=== PATIENT | male | born 1940 | race Caucasian/White ===

== ENCOUNTER 2016-06-13 10:05 | Day surgery (SDC) | payer MEDICARE, OTHER ==
[2016-06-13] VITALS (11 sets, daily range): BP systolic 98–126; BP diastolic 46–82
[~2016-06-13 10:05] MED LIST: ALBU1.257 IH; AZIT1PAC8 PO; DIGO125T PO; DILT240C88 PO; Rivaroxaban PO
[2016-06-13] MEDS ORDERED: IV SET PRIMARY 1 EA INFUS.SET MC ONE (10:35)
[2016-06-13] MEDS: IV NS 0.9% 1,000 ML ONE (10:36)
[2016-06-13] MEDS ORDERED: DIGO125T PO (12:09)
[2016-06-13] MEDS ORDERED: DILT240C88 PO (12:09)
[2016-06-13] MEDS ORDERED: RIVA10TA PO (12:09)
[2016-06-13] MEDS: DRONEDARONE HYDROCHLORIDE 400 MG TABLET PO ONE (13:33)
== END 2016-06-13 14:15 | disposition home or self-care (01) ==
LOC: DS 10:05 → INTOOBSV 10:06 → UNDOADMOB 10:06 → ICU 10:06 → UNDODISIN 14:15 → DS 14:15
PROVIDERS: ATTEND Internal Medicine Interventional Cardiology
PROC: 5A2204Z Restoration of Cardiac Rhythm, Single (ICD-10-PCS; principal; 2016-06-13)
DX: I48.91 Unspecified atrial fibrillation (principal); I10 Essential (primary) hypertension; I25.2 Old myocardial infarction
CPT/HCPCS: 92960; J7030

== ENCOUNTER 2017-01-28 08:37 | Outpatient (CLI) | payer OTHER ==
[~2017-01-28 08:37] MED LIST changes: -ALBU1.257 IH; -AZIT1PAC8 PO; +RIVA10TA PO; -Rivaroxaban PO
[2017-01-28 10:11] LABS: MEAN CORPUSCULAR HEMOGLOBIN 17 PG (26.0-33.0); MEAN CORPUSCULAR HGB CONC 29 g/dl (31.0-36.0); MEAN CORPUSCULAR VOLUME 58 fL (80-96); PLATELET COUNT (AUTO) 237 /CMM (150-450); RDW COEFFICIENT OF VARIATION 20.7 (11.5-15.0); WHITE BLOOD COUNT (AUTO) 4.7 K/uL (4.3-11.0)
[2017-01-28 10:18] LABS: HEMOGLOBIN 5.8 g/dL (13.5-17.5)
[2017-01-28 10:19] LABS: HEMATOCRIT 20 % (39-51)
[2017-01-28 10:22] LABS: ALANINE AMINOTRANSFERASE 25 U/L (12-78); ALBUMIN 3.4 g/dL (3.4-5.0); ALKALINE PHOSPHATASE 60 U/L (46-116); ASPARTATE AMINOTRANSFERASE 14 U/L (15-37); BILIRUBIN,TOTAL 0.3 mg/dL (0.2-1.0); CALCIUM, SERUM 8.6 mg/dL (8.5-10.1); CARBON DIOXIDE 24 mmol/L (21-32); CHLORIDE 106 mmol/L (98-107); CREATININE 1.4 mg/dL (0.6-1.3); GLUCOSE 89 mg/dL (74-106); MAGNESIUM 2.2 mg/dL (1.8-2.4); POTASSIUM 4.1 mmol/L (3.5-5.1); SODIUM SERUM 140 mmol/L (136-145); TOTAL PROTEIN, SERUM 6.6 g/dL (6.4-8.2); UREA NITROGEN, BLOOD 26 mg/dL (7-18)
[2017-01-28 10:31] LABS: THYROID STIMULATING HORMONE 1.201 uIU/mL (0.358-3.74)
[2017-01-28 10:40] LABS: EOSINOPHILS % (MANUAL) 1 % (0-4); LYMPHOCYTES % (MANUAL) 24 % (16-48); MONOCYTES % (MANUAL) 8 % (0-11.0); NEUTROPHILS % (MANUAL) 67 (42-76)
[2017-01-28] MEDS ORDERED: DRON400T2 PO (12:46)
== END 2017-01-28 23:59 | disposition home or self-care (01) ==
LOC: LAB 08:37
PROVIDERS: ATTEND Internal Medicine Interventional Cardiology
DX: I48.91 Unspecified atrial fibrillation (principal)
CPT/HCPCS: 36415; 80053-TC; 83735-TC; 84439-TC; 84443-TC; 85025-TC

== ENCOUNTER 2017-01-28 11:42 | Inpatient (IN) | payer MEDICARE, OTHER ==
[2017-01-28] VITALS (11 sets, daily range): BP systolic 105–131; BP diastolic 60–96
[~2017-01-28] VITALS: Ht 167.6 cm; Wt 64.4 kg
--- NOTE | 2017-01-28 11:42 | NUR ---
SENT BY DR MORE FOR LOW HGB. NAD NOTED. PT AAO X4, AMB WITH STEADY GAIT. RR EVEN AND UNLABORED. PENDING MD MALONEY.
--- NOTE | 2017-01-28 12:00 | NUR ---
IV ACCESSED RIGHT FA 18G PATENT AND FLUSHING WELL.
[2017-01-28 12:22] LABS: MEAN CORPUSCULAR HEMOGLOBIN 18 PG (26.0-33.0); MEAN CORPUSCULAR HGB CONC 31 g/dl (31.0-36.0); MEAN CORPUSCULAR VOLUME 58 fL (80-96); PLATELET COUNT (AUTO) 194 /CMM (150-450); RDW COEFFICIENT OF VARIATION 19.1 (11.5-15.0); WHITE BLOOD COUNT (AUTO) 4.8 K/uL (4.3-11.0)
[2017-01-28 12:25] LABS: HEMATOCRIT 19 % (39-51)
[2017-01-28 12:33] LABS: INR 1.12 (0.87-1.13); PROTHROMBIN TIME 11.7 SECS (9.5-12.7)
[2017-01-28 12:35] LABS: ALANINE AMINOTRANSFERASE 23 U/L (12-78); ALBUMIN 3.5 g/dL (3.4-5.0); ALKALINE PHOSPHATASE 66 U/L (46-116); ASPARTATE AMINOTRANSFERASE 15 U/L (15-37); BILIRUBIN,DIRECT 0.1 mg/dL (0.0-0.2); BILIRUBIN,TOTAL 0.3 mg/dL (0.2-1.0); CALCIUM, SERUM 8.4 mg/dL (8.5-10.1); CARBON DIOXIDE 25 mmol/L (21-32); CHLORIDE 103 mmol/L (98-107); CREATININE 1.5 mg/dL (0.6-1.3); GLUCOSE 108 mg/dL (74-106); IRON, SERUM 15 ug/dl (50-175); POTASSIUM 3.9 mmol/L (3.5-5.1); SODIUM SERUM 137 mmol/L (136-145); TOTAL IRON BINDING CAPACITY 485 ug/dl (250-450); TOTAL PROTEIN, SERUM 6.6 g/dL (6.4-8.2); UREA NITROGEN, BLOOD 28 mg/dL (7-18)
[2017-01-28] MEDS ORDERED: DRON400T2 PO (12:46)
[2017-01-28 12:48] LABS: FERRITIN 4 ng/mL (8-388)
[2017-01-28] MEDS ORDERED: PANTOPRAZOLE 80 MG in IV NS 0.9% 500 ML IV ONE ×2 (13:00→13:30)
[2017-01-28] MEDS ORDERED: PANTOPRAZOLE 40 MG VIAL ONE (13:15)
--- NOTE | 2017-01-28 13:26 | NUR ---
REPORT GIVEN TO PREET ROJAS FOR JOSE
[2017-01-28] MEDS ORDERED: ZOLPIDEM TARTRATE 5 MG TABLET PO PRN (13:30)
[2017-01-28] MEDS ORDERED: MAGNESIUM HYDROXIDE 30 ML UDC PO PRN (13:30)
[2017-01-28] MEDS ORDERED: ONDANSETRON HCL/PF 4 MG/2 ML VIAL IVP PRN (13:30)
[2017-01-28] MEDS ORDERED: PANTOPRAZOLE 40 MG VIAL IV ONE (13:30)
[2017-01-28] MEDS ORDERED: ACETAMINOPHEN 325 MG TABLET PO PRN (13:30)
[2017-01-28] MEDS ORDERED: Z GUARD REMEDY 2 OZ OINT TP PRN (13:30)
[2017-01-28] MEDS ORDERED: MAG HYDROX/AL HYDROX/SIMETH 30 ML UDC PO PRN (13:30)
[2017-01-28] MEDS ORDERED: HYDROCODONE/APAP 5/325MG 1 EACH TABLET PO PRN (13:30)
--- NOTE | 2017-01-28 14:30 | NUR ---
RN INITIAL NOTES 1400 RECEIVED PT FROM ER. AWAKE, A/OX4. NO RESPIRATORY DISTRESS NOTED. NO SOB NOTED. DENIES ANY PAIN. PLACED COMFORTABLY IN BED. ORIENTED TO ROOM AND USE OF CALL LIGHT. IV LINE IN PLACE. BODY ASSESSMENT DONE, SKIN INTACT. PT CONTINENT AND AMBULATORY. PT HAS ORDER FOR BLOOD TRANSFUSION AND COLONOSCOPY. CONSENT OBTAINED FROM PT AFTER EXPLANATION OF PROCEDURE, RISK AND BENEFITS. PT VERBALIZED UNDERSTANDING. CALLED BLOOD BANK, 1 UNIT OF BLOOD NOT READY. WILL CALL ONCE BLOOD IS READY. PT COMFORTABLE. CALL LIGHT WITHIN REACH. WILL MONITOR.
[2017-01-28] MEDS ORDERED: DRONEDARONE HYDROCHLORIDE 400 MG TABLET PO SCH (17:00)
[2017-01-28 17:01] LABS: RETICULOCYTE COUNT 3.7 % (0.6-2.5)
[2017-01-28 17:27] LABS: THYROID STIMULATING HORMONE 1.092 uIU/mL (0.358-3.74); URIC ACID 5.2 mg/dL (2.6-7.2)
--- NOTE | 2017-01-28 18:40 | NUR ---
RN CLOSING NOTES PT REMAINS STABLE. NO ACTIVE BLEEDING NOTED. NO RESPIRATORY DISTRESS NOTED. DENIES ANY PAIN. IV LINE IN PLACE. KEPT COMFORTABLE. CALL LIGHT WITHIN REACH. WILL ENDORSE FOR CONTINUITY OF CARE. Addendum: 01/28/17 at 1845 by ARIANNE CARDOSO RN FOR BLOOD TRANSFUSION. BLOOD NOT YET READY PER BLOOD BANK. WILL CALL ONCE BLOOD AVAILABLE.
--- NOTE | 2017-01-28 19:05 | NUR ---
MARILOU RN OPENING NOTES REPORT RECEIVED FROM AM RN. PATIENT A/A/O X3, ABLE TO MAKE NEEDS KNOWN. BREATHING EVEN AND UNLABORED, ON ROOM AIR. DENIES SOB OR DIFFICULTY BREATHING. ON TELE W/ CONTROLLED A-FIB IN THE 80S. PULSES PRESENT. SKIN WARM TO TOUCH. RIGHT FOREARM IV #18 INTACT AND PATENT W/ DRESSING CDI. DENIES ANY PAIN OR DISCOMFORT @ THIS TIME. SAFETY MEASURES IN PLACE W/ SIDE RAILS UP, BED LOCKED IN LOWEST POSITION & CALL LIGHT WITHIN REACH. WILL CONTINUE TO MONITOR.
--- NOTE | 2017-01-28 21:14 | NUR ---
MARILOU RN NOTES BLOOD TRANSFUSION STARTED. NO INITIAL REACTIONS NOTED.
[2017-01-29] VITALS (7 sets, daily range): BP systolic 90–127; BP diastolic 55–78
--- NOTE | 2017-01-29 00:09 | NUR ---
MARILOU RN NOTES BLOOD TRANSFUSION ENDED. NO REACTIONS NOTED. VS WNL. REMAINED AFEBRILE.
--- NOTE | 2017-01-29 05:00 | NUR ---
MARILOU RN NOTES PATIENT C/O SOB & NON-PRODUCTIVE COUGH. PER PATIENT "IT'S LIKE THERE'S SOMETHING IN MY CHEST THAT I CAN'T COUGH OUT". [facility] ON-CALL, DR PARRISH, PAGED. AWAITING CALL BACK. Addendum: 01/29/17 at 0653 by ELROY PINEDA RN DR MO SHANE, NOT DR PARRISH.
--- NOTE | 2017-01-29 05:35 | NUR ---
MARILOU ROJAS NOTES SPOKE TO DR FRANCOIS Azul/ [facility] FOR MUCINEX. ORDER CARRIED OUT. Addendum: 01/29/17 at 0652 by ELROY PINEDA RN CORBY Azul/ DR MO SHANE, NOT DR PARRISH.
[2017-01-29 06:46] LABS: BASOPHILS % (AUTO) 0.1 % (0.0-2.0); EOSINOPHILS # (AUTO) 0.1 /CMM (0.0-0.7); EOSINOPHILS % (AUTO) 1.2 % (0.0-6.0); HEMATOCRIT 24 % (39-51); HEMOGLOBIN 7.2 g/dL (13.5-17.5); LYMPHOCYTES # (AUTO) 1.2 /CMM (0.8-4.8); MEAN CORPUSCULAR HEMOGLOBIN 19 PG (26.0-33.0); MEAN CORPUSCULAR HGB CONC 30 g/dl (31.0-36.0); MEAN CORPUSCULAR VOLUME 61 fL (80-96); MONOCYTES % (AUTO) 14.4 % (2.0-12.0); NEUTROPHILS # (AUTO) 4.7 /CMM (1.8-8.9); NEUTROPHILS % (AUTO) 67.3 % (43.0-81.0); PLATELET COUNT (AUTO) 225 /CMM (150-450); RDW COEFFICIENT OF VARIATION 26.1 (11.5-15.0); RED BLOOD CELL COUNT(AUTO) 3.88 MIL/uL (4.5-6.0); WHITE BLOOD COUNT (AUTO) 7.1 K/uL (4.3-11.0)
--- NOTE | 2017-01-29 07:00 | NUR ---
RN NOTES RECEIVED PT ON BED, A/O X3, ABLE TO MAKE NEEDS KNOWN. BREATHING EVEN AND UNLABORED, TELE W/ CONTROLLED A-FIB IN THE 90'S . RIGHT FOREARM IV #18 INTACT AND PATENT W/ DRESSING CDI. NO DISTRESS NOTED, KEPT NPO THIS AM PER MD ORDER , SAFETY MEASURES IN PLACE W/ SIDE RAILS UP, BED LOCKED IN LOWEST POSITION & CALL LIGHT WITHIN REACH. WILL CONTINUE TO MONITOR PT CLOSELY AND NOTIFY MD FOR ANY SIGNIFICANT CHANGES
[2017-01-29 07:14] LABS: ALANINE AMINOTRANSFERASE 24 U/L (12-78); ALBUMIN 3.5 g/dL (3.4-5.0); ALKALINE PHOSPHATASE 63 U/L (46-116); ASPARTATE AMINOTRANSFERASE 17 U/L (15-37); BILIRUBIN,TOTAL 0.9 mg/dL (0.2-1.0); CALCIUM, SERUM 8.5 mg/dL (8.5-10.1); CARBON DIOXIDE 22 mmol/L (21-32); CHLORIDE 103 mmol/L (98-107); CREATININE 1.4 mg/dL (0.6-1.3); GLUCOSE 102 mg/dL (74-106); MAGNESIUM 1.9 mg/dL (1.8-2.4); PHOSPHORUS 3.9 mg/dL (2.5-4.9); POTASSIUM 4.2 mmol/L (3.5-5.1); SODIUM SERUM 136 mmol/L (136-145); TOTAL PROTEIN, SERUM 6.8 g/dL (6.4-8.2); UREA NITROGEN, BLOOD 24 mg/dL (7-18)
[2017-01-29 08:13] LABS: CARCINOEMBRYONIC AG (CEA) 1.2 ng/mL (0.0-4.7)
[2017-01-29] MEDS: PANTOPRAZOLE 40 MG VIAL IV SCH (08:47)
[2017-01-29] MEDS: IV D5/ 0.9% NACL 1,000 ML IV PRN (08:47)
[2017-01-29] MEDS: GUAIFENESIN LA 600 MG TABLET.SA PO SCH ×2 (08:47→21:54)
[2017-01-29] MEDS ORDERED: PEG 3350/NA SULF,BICARB,CL/KCL 4,000 ML BOTTLE PO ONE (09:00)
[2017-01-29 09:10] LABS: LYMPHOCYTES % (MANUAL) 15 % (16-48); MONOCYTES % (MANUAL) 12 % (0-11.0); NEUTROPHILS % (MANUAL) 73 (42-76)
--- NOTE | 2017-01-29 09:14 | NUR ---
RN NOTES COLONOSCOPY PREP STARTED PER MD ORDER .
--- NOTE | 2017-01-29 13:00 | NUR ---
RN NOTES PT COMPLETED GOLYTELY PREP FOR COLONOSCOPY , TOLERATED WELL, UP TO BR SEVERAL TIMES , STABLE , NO DISTRESS NOTED.
[2017-01-29] MEDS: SOD FERRIC GLUC 125 MG in IV NS 0.9% 100 ML IV SCH (14:37)
--- NOTE | 2017-01-29 15:00 | NUR ---
RN NOTES SLIGHT REDNESS NOTE AT IV SITE ON R ARM , NEW IV SITE STARTED ON L ARM G 22 , RIGHT ARM IV SITE D/GABE ,
--- NOTE | 2017-01-29 16:30 | NUR ---
RN NOTES HR A.FIB IN 130'S WHEN PT GET OOB TO BR , SENAIT ANY DISTRESS , DR. MORE PAGED AND NOTIFIED , NO NEW ORDER GIVEN , CONTINUE TO MONITOR .
--- NOTE | 2017-01-29 18:18 | NUR ---
RN NOTES PT WAITING FOR COLOSCOPY THIS PM , NPO, IV FLUID D5NS AT 70CC/O RUNNING L ARM IV G#22, STABLE , NO DISTRESS NOTED, SR UP x3, CALL LIGHT WITHIN EASY REACH, NO SIGNIFICANT CHANGES NOTED ON THIS SHIFT .
--- NOTE | 2017-01-29 18:54 | NUR ---
RN NOTES PT TO TO GI LAB FRO COLONOSCOPY AT THIS TIME IN STABLE CONDITION .
--- NOTE | 2017-01-29 21:25 | NUR ---
RN OPENING NOTES: RECEIVED PT FROM OR, REPORT TAKEN FROM OR NURSE. PER ORDER PATIENT CAN ADAT TO PUT NPO POST MIDNIGHT. PATIENT MADE AWARE. PATIENT ALERT AND ORIENTED. ON O2 THERAPY, NOT IN APPARENT DISTRESS. NOTED TO BE 130'S HR AFIB ON MONITOR. IV ACCESS ON LEFT FOREARM, IVF ORDERED ON FLOOR CONTINUED. NO COMPLAINTS OF PAIN AT THIS TIME. SAFETY MEASURES ENSURED. CALL LIGHT IN REACH. TO MONITOR FOR ACTIVE BLEEDING.
--- NOTE | 2017-01-29 23:00 | NUR ---
RN NOTES; PATIENT'S HR SUSTAINING AT 130'S. PATIENT DENIES CHEST PAIN, PALPITATIONS, DIZZINESS, NAUSEA/VOMITING AT THIS TIME. CALLED [facility] SU[employer], SPOKE TO DR SHANE AND RELAYED PATIENT'S CONDITION, MADE HIM AWARE THAT THERE IS A POSSIBLE ELECTIVE CARDIOVERSION TO BE DONE TOMORROW C/O DR MORE. WITH ORDERS TO GIVE A ONE TIME METOPROLOL 50MG PO NOW PRIOR NPO. NOTED AND CARRIED OUT. PATIENT MADE AWARE. CONTINUOUSLY MONITORED PATIENT. 01/30/17 0015 NOTED PATIENT'S HEART RATE AT 90'S TO LOW 100'S. PATIENT WAS IN AND OUT OF SINUS RHYTHM TO AFIB. TO CONTINUE TO MONITOR ON THE TELE.
[2017-01-29] MEDS ORDERED: METOPROLOL TARTRATE 25 MG TABLET ONE (23:19)
[2017-01-29] MEDS ORDERED: METOPROLOL TARTRATE 50 MG TABLET ONE (23:28)
[2017-01-29] MEDS ORDERED: METOPROLOL TARTRATE 50 MG TABLET PO ONE (23:30)
[2017-01-30] VITALS (9 sets, daily range): BP systolic 95–131; BP diastolic 52–90
[2017-01-30] MEDS: IV D5/ 0.9% NACL 1,000 ML IV PRN (03:37)
[2017-01-30 06:27] LABS: EOSINOPHILS # (AUTO) 0.2 /CMM (0.0-0.7); EOSINOPHILS % (AUTO) 2.9 % (0.0-6.0); HEMATOCRIT 24 % (39-51); LYMPHOCYTES # (AUTO) 0.7 /CMM (0.8-4.8); LYMPHOCYTES % (AUTO) 12.4 % (20.0-44.0); MEAN CORPUSCULAR HEMOGLOBIN 18 PG (26.0-33.0); MEAN CORPUSCULAR HGB CONC 29 g/dl (31.0-36.0); MEAN CORPUSCULAR VOLUME 62 fL (80-96); MONOCYTES # (AUTO) 0.8 /CMM (0.1-1.30); NEUTROPHILS # (AUTO) 3.8 /CMM (1.8-8.9); NEUTROPHILS % (AUTO) 69.7 % (43.0-81.0); PLATELET COUNT (AUTO) 219 /CMM (150-450); RDW COEFFICIENT OF VARIATION 25.4 (11.5-15.0); RED BLOOD CELL COUNT(AUTO) 3.77 MIL/uL (4.5-6.0); WHITE BLOOD COUNT (AUTO) 5.5 K/uL (4.3-11.0)
[2017-01-30 06:50] LABS: HEMOGLOBIN 6.9 g/dL (13.5-17.5)
[2017-01-30 06:54] LABS: ALANINE AMINOTRANSFERASE 22 U/L (12-78); ALBUMIN 3.1 g/dL (3.4-5.0); ALKALINE PHOSPHATASE 59 U/L (46-116); ASPARTATE AMINOTRANSFERASE 22 U/L (15-37); BILIRUBIN,TOTAL 0.4 mg/dL (0.2-1.0); CARBON DIOXIDE 23 mmol/L (21-32); CHLORIDE 108 mmol/L (98-107); CREATININE 1.2 mg/dL (0.6-1.3); GLUCOSE 102 mg/dL (74-106); PHOSPHORUS 3.8 mg/dL (2.5-4.9); POTASSIUM 4.3 mmol/L (3.5-5.1); SODIUM SERUM 141 mmol/L (136-145); TOTAL PROTEIN, SERUM 6.2 g/dL (6.4-8.2); UREA NITROGEN, BLOOD 17 mg/dL (7-18)
--- NOTE | 2017-01-30 06:54 | NUR ---
RN NOTES: CRITICAL RESULT FOR HGB NOTED AT 6.9. PATIENT NOT ACTIVELY BLEEDING AT THIS TIME. DENIES BLOOD IN STOOL. CALLED [facility] [employer]LECT[employer] DR SHANE; WITH ORDERS TO TRANSFUSE 2UNITS PRBC. NOTED AND CARRIED OUT. ORDERS FOR FIRST UNIT. TO ENDORSE TO ORDER NEXT UNIT. PATIENT MADE AWARE. RN CLOSING NOTES: PATIENT REMAINED NOT IN APPARENT DISTRESS. CONTROLLED AFIB ON MONITOR HR AT 90'S. NO COMPLAINTS OF PAIN. SAFETY MEASURES ENSURED. TO ENDORSE TO AM SHIFT RN. Addendum: 01/30/17 at 0657 by TIMI FUNES RN KEPT NPO AT THIS TIME.
--- NOTE | 2017-01-30 08:00 | NUR ---
TELE1/RN AM SHIFT INITIAL NOTES RECEIVED PT AWAKE SITTING IN BED, PT A/O X 4, NO ACUTE CHANGE OF CONDITION NOTED. PT DENIES ANY SYMPTOMS. ON 2L O2 VIA N/C SATURATING @ 99%, LUNG SOUNDS CLEAR. ON TELE MONITORING WITH CONTROLLED A-FIB, HR. 91. PT ON NPO STATUS FOR A POSSIBLE CARDIOVERSION PROCEDURE TODAY. WITH ON GOING IV INFUSION OF D5NS @ 70C/HR, IV SITE PATENT WITH NO S/S OF INFECTION. PT IS COMFORTABLE AT THIS TIME. SCHEDULED NON-PO MEDS TO BE GIVEN. CL WITHIN REACHED AND SAFETY MAINTAINED. ON GOING MONITORING.
[2017-01-30 08:19] LABS: BAND % (MANUAL) 7 % (0.0-5.0); EOSINOPHILS % (MANUAL) 3 % (0-4); LYMPHOCYTES % (MANUAL) 13 % (16-48); MONOCYTES % (MANUAL) 12 % (0-11.0); NEUTROPHILS % (MANUAL) 65 (42-76)
[2017-01-30] MEDS: GUAIFENESIN LA 600 MG TABLET.SA PO SCH (08:19)
[2017-01-30] MEDS: PANTOPRAZOLE 40 MG VIAL IV SCH (08:38)
[2017-01-30] MEDS ORDERED: IV NS 0.9% 250 ML BAG IV ONE (09:00)
--- NOTE | 2017-01-30 09:20 | NUR ---
TELE1/RN ROUNDS - DR. MORE UPDATED PT'S CONDITION. PT SEEN & EXAMINED BY DR. MORE. VERIFIED WITH MD THAT PT WILL HAVE CARDIOVERSION PROCEDURE SCHEDULED @ 12:30PM TODAY. PT IS AWARE OF PROCEDURE AND HAVE CONSENTED FOR IT, NO ACUTE CHANGE OF CONDITION NOTED AT THIS TIME. ON GOING MONITORING.
--- NOTE | 2017-01-30 11:00 | NUR ---
TELE1/RN 1 PRBC - INITIATED TRANSFUSION OF 1 UNIT OF PRBC INITIATED. ON GOING MONITORING.
--- NOTE | 2017-01-30 11:24 | NUR ---
TELE1/RN REPORT TO ICU - CARDIOVERSION REPORT GIVEN TO NURSE JOB FOR PT TO BE TRANSFERRED TO ICU FOR CARDIOVERSION PROCEDURE.
[2017-01-30] MEDS ORDERED: ANESTHESIA TRAY IN PYXIS 1 EA TRAY MC ONE (11:33)
--- NOTE | 2017-01-30 11:43 | NUR ---
TELE1/RN TRANSFERRED TO ICU PT TRANSFERRED TO ICU VIA BED TO ROOM 251 WITHOUT INCIDENT, ENDORSED TO NURSE JOB TO CONTINUE CARE.
--- NOTE | 2017-01-30 12:30 | NUR ---
DR. MORE IN WITH ANESTHESIOLOGIST, FOR CARDIOVERSION. PERFORMED AND PT GOES BACK INTO SINUS. DR. MORE ORDERS FOR 12 LEAD EKG AND TO RESTART MULTAQ 400 BID, AND XARELTO 20MG DAILY Q5PM. HE ORDERS TO FINISH THE BLOOD TRANFUSION WITH REPEAT H/H UPON COMPLETION AND IF LOW AGAIN 1 MORE UNIT, IF WNL PT IS OKAY TO DISCHARGE HOME, PER DR. MORE.
[2017-01-30] MEDS: SOD FERRIC GLUC 125 MG in IV NS 0.9% 100 ML IV SCH (13:44)
--- NOTE | 2017-01-30 14:13 | NUR ---
1ST PRBC COMPLETE, REPEAT H/H SCHEDULED FOR 1513. PT TOLERATED WELL.
--- NOTE | 2017-01-30 16:11 | NUR ---
H/H REPORTED TO DR. PERKINS, DR. MORE GAVE THE OKAY TO DC IF HGB IS ABOVE 7, DR. PERKINS ACKNOWLEDGES AND OKAYS TO DC HOME. INSTRUCTED HIM TO RESUME MULTAQ 400MG BID AND XARELTO 20MG DAILY. IV LINES REMOVED, ALL BELONGINGS RECONCILED AND BELONGINGS SHEET SIGNED, DC PAPER WORK SIGNED. PT CT HOME SELF CARE, HE CAME AND DROVE HIMSELF, I ESCORTED HIM TO HIS CAR.
[2017-01-30] MEDS ORDERED: DRONEDARONE HYDROCHLORIDE 400 MG TABLET PO SCH (17:00)
[2017-01-30] MEDS ORDERED: RIVAROXABAN 10 MG TABLET PO SCH (17:00)
== END 2017-01-30 16:15 | disposition home or self-care (01) | DRG 394 ==
LOC: ER 11:44 → TELE1 13:22 → TELE-TD 14:17 → TELE1 01-29 21:16 → ICU 01-30 11:43
PROVIDERS: ADMIT Family Medicine; ATTEND Family Medicine
PROC: 30233N1 Transfusion of Nonautologous Red Blood Cells into Peripheral Vein, Percutaneous Approach (ICD-10-PCS; principal; 2017-01-28)
PROC: 0DBP8ZZ Excision of Rectum, Via Natural or Artificial Opening Endoscopic (ICD-10-PCS; 2017-01-29)
PROC: 0DB68ZX Excision of Stomach, Via Natural or Artificial Opening Endoscopic, Diagnostic (ICD-10-PCS; 2017-01-29 20:13)
PROC: 5A2204Z Restoration of Cardiac Rhythm, Single (ICD-10-PCS; 2017-01-30)
DX: K64.2 Third degree hemorrhoids (principal); D62 Acute posthemorrhagic anemia; I48.91 Unspecified atrial fibrillation; D50.0 Iron deficiency anemia secondary to blood loss (chronic); K29.70 Gastritis, unspecified, without bleeding; K57.30 Diverticulosis of large intestine without perforation or abscess without bleeding; K64.4 Residual hemorrhoidal skin tags; Z79.01 Long term (current) use of anticoagulants; K62.1 Rectal polyp; K52.9 Noninfective gastroenteritis and colitis, unspecified
CPT/HCPCS: 36415; 71010-TC; 80048-TC; 80053-TC; 80076-TC; 82272-TC; 82306; 82378; 82728-TC; 82746; 83540-TC; 83615-TC; 83735-TC; 84100-TC; 84443-TC; 84550-TC; 85025-TC; 85027-TC; 85045-TC; 85652-TC; 85730-TC; 86850-TC; 86921-TC; 87081-TC; A4606; C9113; J2704; J2916; J7030; J7042; J7050; P9016-BL; Z7610

== ENCOUNTER 2017-02-20 12:00 | Outpatient (CLI) | payer MEDICARE ==
[~2017-02-20 12:00] MED LIST changes: -DIGO125T PO; -DILT240C88 PO; +DRON400T2 PO
[2017-02-20 13:18] LABS: EOSINOPHILS # (AUTO) 0.1 /CMM (0.0-0.7); EOSINOPHILS % (AUTO) 2.6 % (0.0-6.0); HEMATOCRIT 36 % (39-51); HEMOGLOBIN 11.1 g/dL (13.5-17.5); LYMPHOCYTES # (AUTO) 1.2 /CMM (0.8-4.8); LYMPHOCYTES % (AUTO) 26.4 % (20.0-44.0); MEAN CORPUSCULAR HEMOGLOBIN 21 PG (26.0-33.0); MEAN CORPUSCULAR HGB CONC 31 g/dl (31.0-36.0); MEAN CORPUSCULAR VOLUME 70 fL (80-96); MONOCYTES # (AUTO) 0.8 /CMM (0.1-1.30); MONOCYTES % (AUTO) 17.2 % (2.0-12.0); NEUTROPHILS # (AUTO) 2.4 /CMM (1.8-8.9); NEUTROPHILS % (AUTO) 53.8 % (43.0-81.0); PLATELET COUNT (AUTO) 266 /CMM (150-450); RDW COEFFICIENT OF VARIATION 36.1 (11.5-15.0); RED BLOOD CELL COUNT(AUTO) 5.22 MIL/uL (4.5-6.0); WHITE BLOOD COUNT (AUTO) 4.4 K/uL (4.3-11.0)
[2017-02-20 13:37] LABS: ALANINE AMINOTRANSFERASE 30 U/L (12-78); ALBUMIN 3.8 g/dL (3.4-5.0); ALKALINE PHOSPHATASE 67 U/L (46-116); ASPARTATE AMINOTRANSFERASE 14 U/L (15-37); BILIRUBIN,TOTAL 0.2 mg/dL (0.2-1.0); CALCIUM, SERUM 8.8 mg/dL (8.5-10.1); CARBON DIOXIDE 26 mmol/L (21-32); CHLORIDE 105 mmol/L (98-107); CREATININE 1.4 mg/dL (0.6-1.3); GLUCOSE 91 mg/dL (74-106); POTASSIUM 4.4 mmol/L (3.5-5.1); SODIUM SERUM 137 mmol/L (136-145); TOTAL PROTEIN, SERUM 7.1 g/dL (6.4-8.2); UREA NITROGEN, BLOOD 23 mg/dL (7-18)
[2017-02-20 13:38] LABS: IRON, SERUM 89 ug/dl (50-175)
[2017-02-20 13:44] LABS: TOTAL IRON BINDING CAPACITY 410 ug/dl (250-450)
[2017-02-20 14:39] LABS: EOSINOPHILS % (MANUAL) 2 % (0-4); LYMPHOCYTES % (MANUAL) 26 % (16-48); MONOCYTES % (MANUAL) 18 % (0-11.0); NEUTROPHILS % (MANUAL) 54 (42-76)
== END 2017-02-20 23:59 | disposition home or self-care (01) ==
LOC: LAB 12:00
PROVIDERS: ATTEND Internal Medicine Interventional Cardiology
DX: D64.9 Anemia, unspecified (principal); I48.91 Unspecified atrial fibrillation; E55.9 Vitamin D deficiency, unspecified
CPT/HCPCS: 36415; 80053-TC; 82306; 83540-TC; 83550-TC; 85025-TC

== ENCOUNTER 2017-08-28 07:04 | Inpatient (IN) | payer MEDICARE ==
[~2017-08-28] VITALS: Ht 170.2 cm; Wt 65.8 kg
--- NOTE | 2017-08-28 02:26 | NUR ---
RN NOTES RECEIVED PATIENT IN BED, NO DISTRESS NOTED. BREATHING EVEN AND UNLABORED. NO COMPLAINT OF PAIN. ALERT AND ORIENTED. ABLE TO VERBALIZE NEEDS. VITAL SIGNS WNL. FOR EGD AND COLONOSCOPY IN AM. KEPT CLEAN AND DRY. WILL CONTINUE TO MONITOR.
--- NOTE | 2017-08-28 07:10 | NUR ---
[id number] FROM HOME: BLOOD IN STOOL x 1 DAY. BLOOD BRIGHT RED, MODERATE AMOUNT. PATIENT IS A/OX 4. BREATHING EVEN AND UNLABORED. NO SOB, NAD, VITALS STABLE. SAFETY AND COMFORT MEASURES IN PLACE. AWAITING MD ORDERS.
--- NOTE | 2017-08-28 07:15 | NUR ---
NEW IV STARTED ON RAC, 18G. BLOOD DRAWN AND SENT TO LAB.
--- NOTE | 2017-08-28 07:18 | NUR ---
AT BEDSIDE FOR RECTAL EXAM.
[2017-08-28] MEDS ORDERED: DILTIAZEM HCL 25 MG IV ONE (07:21)
[2017-08-28 07:29] LABS: BASOPHILS % (AUTO) 0.4 % (0.0-2.0); EOSINOPHILS % (AUTO) 1.5 % (0.0-6.0); HEMATOCRIT 36 % (39-51); HEMOGLOBIN 12.1 g/dL (13.5-17.5); LYMPHOCYTES % (AUTO) 40.7 % (20.0-44.0); MEAN CORPUSCULAR HGB CONC 34 g/dl (31.0-36.0); MEAN CORPUSCULAR VOLUME 89 fL (80-96); MONOCYTES % (AUTO) 13.2 % (2.0-12.0); NEUTROPHILS # (AUTO) 3.2 /CMM (1.8-8.9); NEUTROPHILS % (AUTO) 44.2 % (43.0-81.0); PLATELET COUNT (AUTO) 198 /CMM (150-450); RDW COEFFICIENT OF VARIATION 13.3 (11.5-15.0); RED BLOOD CELL COUNT(AUTO) 4.07 MIL/uL (4.5-6.0); WHITE BLOOD COUNT (AUTO) 7.3 K/uL (4.3-11.0)
[2017-08-28] MEDS ORDERED: IV NS 0.9% 1,000 ML BAG IV ONE (07:30)
[2017-08-28] MEDS ORDERED: IV NS 0.9% 500 ML BAG IV ONE (07:30)
[2017-08-28] MEDS ORDERED: DILTIAZEM HCL 50 MG IV IV ONE (07:30)
[2017-08-28 07:47] LABS: CALCIUM, SERUM 9.3 mg/dL (8.5-10.1); CARBON DIOXIDE 20 mmol/L (21-32); CHLORIDE 102 mmol/L (98-107); GLUCOSE 133 mg/dL (74-106); POTASSIUM 3.6 mmol/L (3.5-5.1); SODIUM SERUM 139 mmol/L (136-145); UREA NITROGEN, BLOOD 31 mg/dL (7-18)
[2017-08-28 07:52] LABS: ALANINE AMINOTRANSFERASE 24 U/L (12-78); ALBUMIN 3.9 g/dL (3.4-5.0); ALKALINE PHOSPHATASE 59 U/L (46-116); ASPARTATE AMINOTRANSFERASE 15 U/L (15-37); BILIRUBIN,DIRECT 0.1 mg/dL (0.0-0.2); BILIRUBIN,TOTAL 0.5 mg/dL (0.2-1.0); LIPASE 192 U/L (73-393); TOTAL PROTEIN, SERUM 7.4 g/dL (6.4-8.2)
[2017-08-28 07:54] LABS: TROPONIN I < 0.017 ng/mL (0.00-0.056)
--- NOTE | 2017-08-28 07:55 | NUR ---
INSTRUCTOR DANCING AT BEDSIDE.
--- NOTE | 2017-08-28 08:13 | NUR ---
Paged Dr. Bowman for consult
--- NOTE | 2017-08-28 08:13 | NUR ---
Joseph Pearson for admission.
[2017-08-28 08:17] LABS: INR 0.95 (0.87-1.13)
--- NOTE | 2017-08-28 08:18 | NUR ---
PATIENT TAKEN TO CT VIA STRETCHER IN STABLE CONDITION.
--- NOTE | 2017-08-28 08:27 | NUR ---
PATIENT RETURNED FROM CT IN STABLE CONDITION.
[2017-08-28] MEDS ORDERED: LISI10TA5 PO (08:31)
[2017-08-28] MEDS ORDERED: IV D5W 1,000 ML IV PRN (08:55)
--- NOTE | 2017-08-28 08:56 | NUR ---
DR. MORE AT BEDSIDE FOR EVAL
[2017-08-28] MEDS ORDERED: MAG HYDROX/AL HYDROX/SIMETH 30 ML UDC PO PRN (09:00)
[2017-08-28] MEDS: DRONEDARONE HYDROCHLORIDE 400 MG TABLET PO SCH ×2 (09:00→17:00)
[2017-08-28] MEDS ORDERED: HYDROCODONE/APAP 5/325MG 1 EACH TABLET PO PRN (09:00)
[2017-08-28] MEDS ORDERED: Z GUARD REMEDY 2 OZ OINT TP PRN (09:00)
[2017-08-28] MEDS ORDERED: ZOLPIDEM TARTRATE 5 MG TABLET PO PRN (09:00)
[2017-08-28] MEDS ORDERED: MAGNESIUM HYDROXIDE 30 ML UDC PO PRN (09:00)
[2017-08-28] MEDS ORDERED: DILTIAZEM HCL 25 MG IV IV PRN (09:00)
[2017-08-28] MEDS ORDERED: ACETAMINOPHEN 325 MG TABLET PO PRN (09:00)
[2017-08-28] MEDS ORDERED: ONDANSETRON HCL/PF 4 MG/2 ML VIAL IVP PRN (09:00)
--- NOTE | 2017-08-28 09:34 | NUR ---
CALLED DR. ROLDAN FOR NEW CONSULT, VOICEMAIL FULL. NO ANSWER, UNABLE TO LEAVE VOICEMAIL AT THIS TIME.
--- NOTE | 2017-08-28 09:48 | NUR ---
REPORT GIVEN TO MELVI ROJAS FOR JOSE UPON ADMISSION.
--- NOTE | 2017-08-28 10:49 | NUR ---
PATIENT TRANSPORTED TO [facility] VIA ACLS PROTOCOL. MELVI ROJAS TO PROVIDE JOSE.
--- NOTE | 2017-08-28 10:56 | NUR ---
TELE/RN OPENING NOTE PATIENT IS RECEIVED ON A GURNEY. ASSISTED TO BED. PATIENT ALERT AND ORIENTED X4. DENIES PAIN AT THIS TIME. RESPIRATION REGULAR AND UNLABORED. DENIES SOB AT THIS TIME. RAC G 18 PATENT. ORIENTATION TO UNIT IS PROVIDED TO THE PATIENT. PATIENT VERBALIZED UNDERSTANDING. BED LOW AND LOCKED. SIDE RAILS UP X2. CALL LIGHT WITHIN REACH. WILL CONTINUE TO MONITOR.
[2017-08-28 12:00] VITALS: BP 98/63
[2017-08-28] MEDS: PANTOPRAZOLE 40 MG VIAL IV SCH ×2 (12:54→21:32)
--- NOTE | 2017-08-28 14:55 | NUR ---
TELE/RN NOTE PER CONSULTING SENIOR PRACTICE DIRECTOR MILI Grimaldo CONTINUE KEEPING THE PATIENT NPO. PATIENT IS MADE AWARE.
[2017-08-28 16:00] VITALS: BP 98/63
[2017-08-28] MEDS ORDERED: PEG 3350/NA SULF,BICARB,CL/KCL 4,000 ML BOTTLE PO ONE (17:30)
[2017-08-28] MEDS ORDERED: NA PHOS,M-B/NA PHOS,DI-BA 1 EA ENEMA RC PRN (17:30)
[2017-08-28] MEDS ORDERED: MAGNESIUM CITRATE 296 ML BOTTLE PO ONE (17:30)
[2017-08-28 17:41] LABS: IRON, SERUM 114 ug/dl (50-175); TOTAL IRON BINDING CAPACITY 365 ug/dl (250-450)
[2017-08-28 18:33] LABS: BASOPHILS % (AUTO) 0.6 % (0.0-2.0); EOSINOPHILS % (AUTO) 0.5 % (0.0-6.0); HEMATOCRIT 31 % (39-51); HEMOGLOBIN 10.5 g/dL (13.5-17.5); LYMPHOCYTES # (AUTO) 1.1 /CMM (0.8-4.8); LYMPHOCYTES % (AUTO) 24.3 % (20.0-44.0); MEAN CORPUSCULAR HGB CONC 34 g/dl (31.0-36.0); MEAN CORPUSCULAR VOLUME 88 fL (80-96); MONOCYTES # (AUTO) 0.6 /CMM (0.1-1.30); MONOCYTES % (AUTO) 13.4 % (2.0-12.0); NEUTROPHILS # (AUTO) 2.8 /CMM (1.8-8.9); NEUTROPHILS % (AUTO) 61.2 % (43.0-81.0); PLATELET COUNT (AUTO) 161 /CMM (150-450); RDW COEFFICIENT OF VARIATION 13.6 (11.5-15.0); WHITE BLOOD COUNT (AUTO) 4.5 K/uL (4.3-11.0)
--- NOTE | 2017-08-28 19:00 | NUR ---
TELE/RN CLOSING NOTE PATIENT ALERT AND ORIENTED X4. RESPIRATION REGULAR AND UNLABORED. DENIES SOB, PAIN AT THIS TIME. IN NO APPARENT DISTRESS. PATIENT NPO. BED LOW AND LOCKED. SIDE RAILS UP X2. CALL LIGHT WITHIN REACH. WILL ENDORSE TO UNDER CUTTER.
[2017-08-28 20:00] VITALS: BP 109/62
[2017-08-29] VITALS (7 sets, daily range): BP systolic 97–116; BP diastolic 43–70
--- NOTE | 2017-08-29 06:40 | NUR ---
RN CLOSING NOTES RN CLOSING NOTES IN BED COMFORTABLY RESTING WITH NO DISTRESS NOTED. BREATHING EVEN AND UNLABORED. PATIENT HAS A LOT OF RED BLOOD IN STOOL. FINISHED 4L OF GOLYTELY. MORE THAN 8 TIMES WENT TO REST ROOM TO PASS STOOL. AT ABOUT 0300 HEART RATE WENT UP TO 180 WHILE INSIDE THE REST ROOM BUT WENT DOWN TO 120 IN LESS THAN 1 MINUTE. PATIENT WILL HAVE EGD AND COLONOSCOPY AT 8:30AM. VITAL SIGNS WNL. KEPT CLEAN AND DRY. WILL ENDORSE TO AM SHIFT FOR CONTINUITY OF CARE.
[2017-08-29 07:39] LABS: BASOPHILS % (AUTO) 0.4 % (0.0-2.0); EOSINOPHILS % (AUTO) 0.2 % (0.0-6.0); HEMATOCRIT 31 % (39-51); HEMOGLOBIN 10.6 g/dL (13.5-17.5); LYMPHOCYTES % (AUTO) 17.7 % (20.0-44.0); MEAN CORPUSCULAR HGB CONC 35 g/dl (31.0-36.0); MEAN CORPUSCULAR VOLUME 87 fL (80-96); MONOCYTES # (AUTO) 0.7 /CMM (0.1-1.30); MONOCYTES % (AUTO) 13.3 % (2.0-12.0); NEUTROPHILS # (AUTO) 3.7 /CMM (1.8-8.9); NEUTROPHILS % (AUTO) 68.4 % (43.0-81.0); PLATELET COUNT (AUTO) 163 /CMM (150-450); RDW COEFFICIENT OF VARIATION 13.5 (11.5-15.0); RED BLOOD CELL COUNT(AUTO) 3.49 MIL/uL (4.5-6.0); WHITE BLOOD COUNT (AUTO) 5.4 K/uL (4.3-11.0)
[2017-08-29 07:48] LABS: CALCIUM, SERUM 8.3 mg/dL (8.5-10.1); CARBON DIOXIDE 23 mmol/L (21-32); CHLORIDE 108 mmol/L (98-107); CREATININE 1.6 mg/dL (0.6-1.3); GLUCOSE 87 mg/dL (74-106); MAGNESIUM 2.1 mg/dL (1.8-2.4); PHOSPHORUS 2.2 mg/dL (2.5-4.9); POTASSIUM 4.1 mmol/L (3.5-5.1); SODIUM SERUM 141 mmol/L (136-145); UREA NITROGEN, BLOOD 24 mg/dL (7-18)
--- NOTE | 2017-08-29 08:35 | NUR ---
MORTGAGE UNDERWRITER NOTE PATIENT LEFT FLOOR FOR EGD AND COLONOSCOPY
[2017-08-29] MEDS: PANTOPRAZOLE 40 MG VIAL IV SCH ×2 (09:00→20:45)
[2017-08-29] MEDS: DRONEDARONE HYDROCHLORIDE 400 MG TABLET PO SCH ×2 (09:00→16:21)
--- NOTE | 2017-08-29 10:15 | NUR ---
RESIDENTIAL MENTAL HEALTH WORKER NOTE PATIENT RETURNED FROM PROCEDURE RESTING COMFORTABLY IN BED, IN NO ACUTE DISTRESS, DENIES ANY PAIN.
[2017-08-29] MEDS: IV NS 0.9% 1,000 ML IV PRN (12:40)
--- NOTE | 2017-08-29 13:16 | NUR ---
CUSTOMER SERVICE SECURITY OFFICER INITIAL NOTE PATIENT RESTING COMFORTABLY IN BED DUE TO GO TO EGD AND COLONOSCOPY DUE TO GIB, NPO, DENIES HAVING ANY PAIN, AOX3, SPEECH CLEAR, NO CARDIAC OR RESPIRATORY DISTRESS. AMBULATORY, BRP, REPORTS HAVING BLOODY STOOLS. SAFETY MAINTAINED AT ALL TIMES, BED LOCKED LOW POSITION WITH CALL LIGHT WITHIN REACH. WILL CONTINUE TO MONITOR FOR ANY CHANGES IN CONDITION. Addendum: 08/29/17 at 1755 by XIOMARA SINGH RN INITIAL NOTE TIME CORRECTION 0534
[2017-08-29] MEDS ORDERED: K PHOS NEUTRAL 250 MG TABLET PO ONE (16:00)
--- NOTE | 2017-08-29 18:49 | NUR ---
RN CLOSING NOTE PATIENT RESTING COMFORTABLY IN BED, EGD AND COLONOSCOPY DONE, DUE FOR HEMORRHOIDECTOMY TO BE SCHEDULED. WILL ENDORSE TO PM NURSE FOR CONTINUITY OF CARE.
[2017-08-30] VITALS: BP 107/57
[2017-08-30 00:35] VITALS: BP 107/57
[2017-08-30] MEDS: IV NS 0.9% 1,000 ML IV PRN ×2 (04:06→14:54)
[2017-08-30 04:46] VITALS: BP 126/73
--- NOTE | 2017-08-30 06:44 | NUR ---
RN notes Received patient alert, oriented, no compliants of pain throughout the night, x2BM overnight, moderately black loose stools @ 2130 and scant clear loose stools @0100. denies of any abd pain. kept comfortable.
--- NOTE | 2017-08-30 07:00 | NUR ---
REPORT RECEIVED AT THE BEDSIDE. PATIENT IS RESTING COMFORTABLY IN THE BED. NO SOB OR DISTRESS NOTED AT THIS TIME. PATIENT DENIES PAIN. HEART RATE SR IN THE LOW 70S. BED IN A LOW POSITION, CALL LIGHT WITHIN PATIENT REACH. WILL CONTINUE TO MONITOR.
[2017-08-30 08:00] VITALS: BP 109/67
[2017-08-30] MEDS: DRONEDARONE HYDROCHLORIDE 400 MG TABLET PO SCH ×2 (08:10→17:00)
[2017-08-30] MEDS: PANTOPRAZOLE 40 MG VIAL IV SCH ×2 (08:10→21:12)
--- NOTE | 2017-08-30 09:44 | NUR ---
ASKED PT ABOUT FLU AND PNEUMONIA VACCINATION STATUS. PATIENT HAS NOT HAD EITHER VACCINE. PROVIDED EDUCATION ON THE BENEFITS OF RECEIVING THE VACCINATIONS. PATIENT DECLINED BOTH FLU AND PNEUMONIA VACCINES AT THIS TIME. PT STATES UNDERSTANDING.
[2017-08-30 16:00] VITALS: BP 103/60
--- NOTE | 2017-08-30 16:50 | NUR ---
CALLED AND SPOKE TO DR HAN TO MAKE SURE THE MD IS AWARE OF THE SURGICAL CONSULT. MD STATES HE IS AWARE AND STATES HE WILL SEE THE PATIENT TONIGHT OR FIRST THING TOMORROW.
--- NOTE | 2017-08-30 19:30 | NUR ---
MS RN OPENING NOTES: PATIENT IN BED, AOX4, ON ROOM AIR, BREATHING EVEN AND UNLABORED. APPEARS CALM AND IN NO DISTRESS. DENIES PAIN. BREATH SOUNDS CLEAR TO AUSCULTATION. PIV OVER RAC G 18 INTACT AND INFUSING WELL WITH NS RUNNING AT 100 ML/HR. PROVIDED FOR COMFORT AND SAFETY. BED IN LOWEST AND LOCKED POSITION, SIDERAILS UP X 3, CALL LIGHT WITHIN REACH. WILL CONT TO MONITOR.
--- NOTE | 2017-08-30 23:15 | NUR ---
RN NOTES: PATIENT IN BED, AOX4, ON ROOM AIR, BREATHING EVEN AND UNLABORED. NO ACUTE CHANGE IN CONDITION. ENDORSED PATIENT TO JACQUE ROJAS FOR JOSE.
--- NOTE | 2017-08-30 23:20 | NUR ---
MS RN NOTE PT RECEIVED AWAKE AND ALERT IN BED. A/O X4 AND ABLE TO VERBALIZE NEEDS. ON ROOM AIR AND BREATHING UNLABORED. IV CLEAN AND DRY WITH FLUIDS INFUSING. NO C/O PAIN OR DISCOMFORT NOTED. CALL LIGHT WITHIN REACH. WILL CONTINUE TO MONITOR.
[2017-08-31] MEDS: IV NS 0.9% 1,000 ML IV PRN ×3 (01:06→21:18)
[2017-08-31 04:00] VITALS: BP 130/70
[2017-08-31 07:29] LABS: BASOPHILS % (AUTO) 0.4 % (0.0-2.0); EOSINOPHILS % (AUTO) 4.3 % (0.0-6.0); HEMATOCRIT 26 % (39-51); HEMOGLOBIN 8.9 g/dL (13.5-17.5); LYMPHOCYTES # (AUTO) 0.8 /CMM (0.8-4.8); LYMPHOCYTES % (AUTO) 20.5 % (20.0-44.0); MEAN CORPUSCULAR HGB CONC 34 g/dl (31.0-36.0); MEAN CORPUSCULAR VOLUME 89 fL (80-96); MONOCYTES # (AUTO) 0.6 /CMM (0.1-1.30); MONOCYTES % (AUTO) 15.9 % (2.0-12.0); NEUTROPHILS # (AUTO) 2.4 /CMM (1.8-8.9); NEUTROPHILS % (AUTO) 58.9 % (43.0-81.0); PLATELET COUNT (AUTO) 124 /CMM (150-450); RDW COEFFICIENT OF VARIATION 13.6 (11.5-15.0); RED BLOOD CELL COUNT(AUTO) 2.97 MIL/uL (4.5-6.0); WHITE BLOOD COUNT (AUTO) 4.1 K/uL (4.3-11.0)
--- NOTE | 2017-08-31 07:36 | NUR ---
MS RN CLOSING NOTE PT REMAINED STABLE DURING. NO ACUTE DISTRESS NOTED. ALL NEEDS ATTENDED TO PROMPTLY. CALL LIGHT WITHIN REACH. WILL ENDORSE TO NEXT SHIFT FOR CONTINUITY OF CARE.
--- NOTE | 2017-08-31 07:43 | NUR ---
MS RN OPENING NOTES RECEIVED PT FROM NIGHTSHIFT NURSE IN STABLE CONDITION. PT IS A/O X3. NO SOB OR SIGNS OF DISTRESS NOTED. BREATHING IS EVEN AND UNLABORED. PT DENIES ANY RECTAL BLEEDING OR BLACK TARRY STOOLS AT THIS TIME OR DURING THE NIGHT. IV TO RIGHT AC NOTED TO BE PATENT AND INTACT. NO REDNESS OR SIGNS OF INFILTRATION NOTED. BED IN LOW LOCKED POSITION, SIDE RAILS UP X2, CALL LIGHT WITHIN REACH. WILL CONTINUE TO MONITOR
[2017-08-31 08:00] VITALS: BP 125/65
[2017-08-31 08:02] LABS: ALANINE AMINOTRANSFERASE 26 U/L (12-78); ALBUMIN 2.8 g/dL (3.4-5.0); ALKALINE PHOSPHATASE 43 U/L (46-116); ASPARTATE AMINOTRANSFERASE 20 U/L (15-37); BILIRUBIN,TOTAL 0.3 mg/dL (0.2-1.0); CARBON DIOXIDE 23 mmol/L (21-32); CHLORIDE 109 mmol/L (98-107); CREATININE 1.5 mg/dL (0.6-1.3); GLUCOSE 95 mg/dL (74-106); MAGNESIUM 1.4 mg/dL (1.8-2.4); PHOSPHORUS 3.1 mg/dL (2.5-4.9); POTASSIUM 3.8 mmol/L (3.5-5.1); SODIUM SERUM 141 mmol/L (136-145); TOTAL PROTEIN, SERUM 5.5 g/dL (6.4-8.2); UREA NITROGEN, BLOOD 21 mg/dL (7-18)
[2017-08-31] MEDS: DRONEDARONE HYDROCHLORIDE 400 MG TABLET PO SCH ×2 (08:17→17:03)
[2017-08-31] MEDS: PANTOPRAZOLE 40 MG VIAL IV SCH ×2 (08:17→21:11)
[2017-08-31] MEDS ORDERED: Magnesium 1GM/D5W 100ML PREMIX 100 ML IV SCH (10:20)
[2017-08-31 10:35] LABS: LYMPHOCYTES % (MANUAL) 36 % (16-48); MONOCYTES % (MANUAL) 3 % (0-11.0); NEUTROPHILS % (MANUAL) 61 (42-76)
--- NOTE | 2017-08-31 15:34 | NUR ---
GUILLE HAN PAGED IN REGARDS TO SURGICAL EVALUATION. PER MD, "I WILL BE BY TODAY TO SEE HIM".
[2017-08-31 16:00] VITALS: BP 113/65
--- NOTE | 2017-08-31 18:31 | NUR ---
MS RN CLOSING NOTED PT REMAINS IN STABLE CONDITION. ALL NEEDS WERE MET DURING SHIFT AND ORDERS CARRIED OUT ACCORDINGLY. ALL DUE MEDS WERE GIVEN. PT HAD TWO BMs DURING SHIFT WITH NO REPORTED BLACK STOOLS. PT DID HAVE EPISODES OF SPOTTING BUT NO CONTINUOUS BLEED. IV TO RIGHT FOREARM REMAIN PATENT AND INTACT. PT TOLERATING NS INFUSION WELL. NO REDNESS OR SIGNS OF INFILTRATION NOTED. SAFETY MEASURES REMAIN IN PLACE. WILL ENDORSE TO NIGHTSHIFT NURSE FOR JOSE
--- NOTE | 2017-08-31 19:30 | NUR ---
Pt laying in bed calm and quiet, no distress.
[2017-08-31 20:00] VITALS: BP 123/70
--- NOTE | 2017-08-31 23:00 | NUR ---
MS RN NOTES RECEIVED PT SITTING UPRIGHT. AWAKE AND RESPONSIVE, RESPIRATIONS ARE EVEN AND UNLABORED, NOT IN ANY ACUTE DISTRESS NOTED. IV SITE INTACT, NO INFILTRATION NOTED. DRESSING KEPT CLEAN AND DRY. INSTRUCTED PT TO USE CALL LIGHT WHEN ASSISTANCE IS NEEDED, CALL LIGHT IS LEFT WITHIN REACH. WILL CONTINUE TO MONITOR.
--- NOTE | 2017-08-31 23:02 | NUR ---
rEPORT GIVEN TO EMILIANA. PT RESTING QUIETLY, NO DISTRESS OR C/O NOTED
[2017-09-01] VITALS: BP 125/70
--- NOTE | 2017-09-01 06:18 | NUR ---
MS RN CLOSING NOTES ALL DUE MEDS GIVEN, NEEDS MET AND ANTICIPATED. REMAINS A/O X4, RESPIRATIONS ARE EVEN AND UNLABORED, NOT IN ANY ACUTE DISTRESS NOTED. DENIES ANY PAIN AT THIS TIME. IV SITE INTACT, NO INFILTRATION NOTED. DRESSING KEPT CLEAN AND DRY. REMINDED PT TO USE CALL LIGHT WHEN ASSISTANCE IS NEEDED, CALL LIGHT IS LEFT WITHIN REACH. SAFETY MEASURES ARE IN PLACE. WILL ENDORSE TO NEXT SHIFT FOR CONTINUITY OF CARE
[2017-09-01] MEDS: IV NS 0.9% 1,000 ML IV PRN (06:28)
--- NOTE | 2017-09-01 07:25 | NUR ---
RN MED/SURG OPENING NOTES RECEIVED PT. IN BED A&OX4. BREATHING UNLABORED, AND EVENLY ON ROOM AIR. NO SOB, AND NO S/S OF ACUTE DISTRESS. IV FLUIDS RUNNING AT 100 ML/HR. BED IS IN LOWEST , AND LOCKED POSITION. 2 SIDE RAILS UP, AND INSTRUCTED PT. TO USE CALL LIGHT FOR ASSISTANCE. ALL NEEDS MET. WILL CONTINUE TO ASSESS, AND MONITOR.
[2017-09-01 07:47] LABS: WHITE BLOOD COUNT (AUTO) 4.6 K/uL (4.3-11.0)
[2017-09-01 07:48] LABS: BASOPHILS % (AUTO) 0.3 % (0.0-2.0); EOSINOPHILS % (AUTO) 3.8 % (0.0-6.0); HEMATOCRIT 27 % (39-51); HEMOGLOBIN 8.9 g/dL (13.5-17.5); MEAN CORPUSCULAR HGB CONC 34 g/dl (31.0-36.0); MEAN CORPUSCULAR VOLUME 89 fL (80-96); MONOCYTES # (AUTO) 0.6 /CMM (0.1-1.30); NEUTROPHILS # (AUTO) 2.8 /CMM (1.8-8.9); NEUTROPHILS % (AUTO) 60.9 % (43.0-81.0); PLATELET COUNT (AUTO) 128 /CMM (150-450); RDW COEFFICIENT OF VARIATION 13.3 (11.5-15.0); RED BLOOD CELL COUNT(AUTO) 2.99 MIL/uL (4.5-6.0)
[2017-09-01 08:00] VITALS: BP 112/58
[2017-09-01 08:07] LABS: ALANINE AMINOTRANSFERASE 23 U/L (12-78); ALBUMIN 2.8 g/dL (3.4-5.0); ALKALINE PHOSPHATASE 45 U/L (46-116); ASPARTATE AMINOTRANSFERASE 17 U/L (15-37); BILIRUBIN,TOTAL 0.3 mg/dL (0.2-1.0); CALCIUM, SERUM 8.1 mg/dL (8.5-10.1); CARBON DIOXIDE 22 mmol/L (21-32); CHLORIDE 110 mmol/L (98-107); CREATININE 1.4 mg/dL (0.6-1.3); GLUCOSE 95 mg/dL (74-106); MAGNESIUM 1.6 mg/dL (1.8-2.4); PHOSPHORUS 3.4 mg/dL (2.5-4.9); SODIUM SERUM 142 mmol/L (136-145); TOTAL PROTEIN, SERUM 5.6 g/dL (6.4-8.2); UREA NITROGEN, BLOOD 16 mg/dL (7-18)
[2017-09-01] MEDS: Magnesium 1GM/D5W 100ML PREMIX 100 ML IV SCH ×2 (09:46→11:09)
[2017-09-01] MEDS: PANTOPRAZOLE 40 MG VIAL IV SCH ×2 (09:46→20:06)
[2017-09-01] MEDS: DRONEDARONE HYDROCHLORIDE 400 MG TABLET PO SCH ×2 (09:46→17:00)
--- NOTE | 2017-09-01 11:27 | NUR ---
RN NOTES PROCEDURE CONSENTS WERE SIGNED, PLACED IN CHART, AND WILL ENDORSE TO NURSE PT. NEEDS TO BE NPO EXCEPT MEDS AFTER MIDNIGHT.
[2017-09-01 16:00] VITALS: BP 105/53
[2017-09-01 18:00] VITALS: BP 105/53
--- NOTE | 2017-09-01 19:25 | NUR ---
RN M/S NOTE RECIEVED PATIENT RESTING COMFORTABLY IN BED, AMBULATORY, AOX3, SPEECH CLEAR, DENIES ANY CARDIAC OR RESPIRATORY DISTRESS AND NO PAIN. NPO EXCEPT MEDS DUE TO HEMRROIDECTOMY IN AM. LFA #22G TOLERATING NS AT 100 ML/HR. SAFETY MAINTAINED AT ALL TIMES, BED IN LOW LOCKED POSITION, CALL LIGHT WITHIN REACH. WILL CONTINUE TO MONITOR FOR ANY CHANGES IN CONDITION.
--- NOTE | 2017-09-01 19:36 | NUR ---
RN MED/SURG CLOSING NOTES PT. IN BED A&OX4. BREATHING UNLABORED, AND EVENLY ON ROOM AIR. NO SOB, AND NO S/S OF ACUTE DISTRESS. IV FLUIDS RUNNING AT 100 ML/HR. BED IS IN LOWEST , AND LOCKED POSITION. 2 SIDE RAILS UP, AND INSTRUCTED PT. TO USE CALL LIGHT FOR ASSISTANCE. ALL NEEDS MET. WILL ENDORSE REPORT TO NURSE. PT. WILL BE NPO EXCEPT MEDS AFTER MIDNIGHT ANTICIPATING FOR PROCEDURE TOMORROW.
[2017-09-02 04:00] VITALS: BP 126/68
[2017-09-02] MEDS ORDERED: Sodium Chloride 4 MEQ/ML VIAL IV ONE (06:59)
--- NOTE | 2017-09-02 07:15 | NUR ---
MS RN NOTES PATIENT IS A/O X4. IVC IN RFA PATENT AND INTACT, FLUSHES WELL. CURRENTLY NPO EXCEPT MEDS, FOR SURGERY TODAY- HEMORRHOIDECTOMY, CONSENT FORM IN THE CHART. CALL LIGHT WITHIN REACH. WILL CONT TO MONITOR.
[2017-09-02 08:00] VITALS: BP 128/73
[2017-09-02 08:03] LABS: CALCIUM, SERUM 8.2 mg/dL (8.5-10.1); CARBON DIOXIDE 24 mmol/L (21-32); CHLORIDE 108 mmol/L (98-107); CREATININE 1.5 mg/dL (0.6-1.3); GLUCOSE 94 mg/dL (74-106); POTASSIUM 3.8 mmol/L (3.5-5.1); SODIUM SERUM 140 mmol/L (136-145); UREA NITROGEN, BLOOD 18 mg/dL (7-18)
[2017-09-02] MEDS: PANTOPRAZOLE 40 MG VIAL IV SCH ×2 (08:32→20:52)
[2017-09-02] MEDS: DRONEDARONE HYDROCHLORIDE 400 MG TABLET PO SCH ×2 (08:33→17:21)
[2017-09-02] MEDS ORDERED: FENTANYL PF 100MCG/2ML AMPUL ONE (12:04)
[2017-09-02] MEDS ORDERED: KETAMINE HCL (500MG/10ML) 50 MG/ML VIAL ONE (12:04)
[2017-09-02] MEDS ORDERED: BUPIVACAINE 0.25% 75 MG/30 ML VIAL ONE (12:22)
[2017-09-02] MEDS ORDERED: LIDOCAINE 0.5% HCL 50 ML VIAL ONE (12:22)
[2017-09-02] MEDS ORDERED: METRONIDAZOLE 500MG/ NS 100ML 100 ML IV ONE (12:28)
[2017-09-02] MEDS ORDERED: GELATIN SPONGE,ABSORBABLE 1 EA SPONGE TP ONE ×2 (12:30→13:23)
[2017-09-02] MEDS ORDERED: THROMBIN (BOVINE) 5,000 UNITS VIAL TP ONE ×2 (12:30→13:23)
[2017-09-02] MEDS ORDERED: ANESTHESIA TRAY IN PYXIS 1 EA TRAY MC ONE (13:48)
[2017-09-02] MEDS ORDERED: HYDROMORPHONE INJ 2 MG/ML DISP.SYRIN ONE (13:51)
[2017-09-02] MEDS ORDERED: FENTANYL PF 100MCG/2ML AMPUL IV PRN (14:00)
[2017-09-02] MEDS: IV NS 0.9% 1,000 ML IV PRN (15:00)
[2017-09-02 15:05] VITALS: BP 119/60
[2017-09-02 16:00] VITALS: BP 104/64
--- NOTE | 2017-09-02 18:20 | NUR ---
MS RN CLOSING NOTES S/P HEMORRHOIDECTOMY BY DR. CODY HAN TODAY, PATIENT REMAINS STABLE, AFEBRILE, RECTAL AREA WITH GAUZE IN PLACE, SCANT SANGUINEOUS WITH YELLOWISH DISCHARGE, DENIES PAIN. STARTED ON CLEAR LIQUIDS DIET DINNER, IVF INFUSING AT 100ML/HR. FALL AND SAFETY PRECAUTION MAINTAINED. WILL ENDORSE TO ONCOMING RN.
--- NOTE | 2017-09-02 19:25 | NUR ---
RN M/S NOTE RECEIVED PATIENT WITH HOB ELEVATED, RESTING COMFORTABLY IN BED, AOX3, SPEECH CLEAR, DENIES ANY CARDIAC OR RESPIRATORY DISTRESS AND NO PAIN. CLEAR LIQUID DIET FOLLOWING HEMORRHOIDECTOMY THIS AM. BRP. LFA #22G TOLERATING NS AT 100 ML/HR. SAFETY MAINTAINED AT ALL TIMES, BED IN LOW LOCKED POSITION, CALL LIGHT WITHIN REACH. WILL CONTINUE TO MONITOR FOR ANY CHANGES IN CONDITION.
[2017-09-02 20:00] VITALS: BP 113/54
[2017-09-03] MEDS: IV NS 0.9% 1,000 ML IV PRN (01:13)
[2017-09-03 04:00] VITALS: BP 109/66
--- NOTE | 2017-09-03 06:55 | NUR ---
RN CLOSING NOTE PATIENT RESTING COMFORTABLY IN BED EASILY AROUSABLE NO ACUTE CHANGES DURING SHIFT WILL ENDORSE TO AM RN FOR CONTINUITY OF CARE.
--- NOTE | 2017-09-03 07:30 | NUR ---
PT RECEIVED RESTING COMFORTABLY IN BED WITH EYES CLOSED. NO S/S OR C/O PAIN OR DISTRESS NOTED. SIDE RAILS UP X2, CALL LIGHT LEFT WITHIN REACH. WILL CONTINUE PLAN OF CARE.
[2017-09-03] MEDS: DRONEDARONE HYDROCHLORIDE 400 MG TABLET PO SCH (09:11)
[2017-09-03] MEDS: PANTOPRAZOLE 40 MG VIAL IV SCH (09:11)
[2017-09-03] MEDS ORDERED: TAMS-12 PO (11:57)
--- NOTE | 2017-09-03 15:45 | NUR ---
DISCHARGE INSTRUCTIONS GIVEN ORDERED. ENCOURAGED TO FOLLOW UP WITH PMD INSTRUCTED. ALL QUESTIONS AND CONCERNS ADDRESSED. PATIENT VERBALIZED UNDERSTANDING. MEDICATION RECONCILIATION FORM COMPLETED AND COPY GIVEN TO PATIENT. HOME MEDICATIONS HELD IN PHARMACY RETURNED TO PATIENT. IV REMOVED WITH CATHETER INTACT, PRESSURE DRESSING APPLIED. PATIENT TAKEN TO [facility] WITH ALL PERSONAL BELONGINGS, ACCOMPANIED BY STAFF AND FAMILY MEMBER. NO DISTRESS NOTED AT TIME OF DEPARTURE.
[2017-09-03] MEDS ORDERED: TAMSULOSIN 0.4 MG CAP.SR.24H PO SCH (22:00)
== END 2017-09-03 15:50 | disposition home or self-care (01) | DRG 347 ==
LOC: ER 07:06 → TELE1 09:58 → MEDSG1 08-30 10:29
PROVIDERS: ADMIT Internal Medicine; ATTEND Internal Medicine
PROC: 0DJD8ZZ Inspection of Lower Intestinal Tract, Via Natural or Artificial Opening Endoscopic (ICD-10-PCS; 2017-08-29)
PROC: 0DB78ZX Excision of Stomach, Pylorus, Via Natural or Artificial Opening Endoscopic, Diagnostic (ICD-10-PCS; 2017-08-29 08:30)
PROC: 06LY4ZC Occlusion of Hemorrhoidal Plexus, Percutaneous Endoscopic Approach (ICD-10-PCS; principal; 2017-09-02 12:32)
DX: K64.8 Other hemorrhoids (principal); N17.0 Acute kidney failure with tubular necrosis; I48.91 Unspecified atrial fibrillation; E86.0 Dehydration; D50.0 Iron deficiency anemia secondary to blood loss (chronic); I10 Essential (primary) hypertension; K29.70 Gastritis, unspecified, without bleeding; K29.80 Duodenitis without bleeding; K44.9 Diaphragmatic hernia without obstruction or gangrene; K57.30 Diverticulosis of large intestine without perforation or abscess without bleeding; K64.4 Residual hemorrhoidal skin tags; T45.515A Adverse effect of anticoagulants, initial encounter; Y92.009 Unspecified place in unspecified non-institutional (private) residence as the place of occurrence of the external cause; R33.8 Other retention of urine
CPT/HCPCS: 36415; 71045-TC; 80048-TC; 80053-TC; 80076-TC; 83540-TC; 83690-TC; 83735-TC; 84100-TC; 84484-TC; 85025-TC; 85730-TC; 86850-TC; 88305-TC; 88313-TC; 88342; A4606; A6402; A6403; C9113; J1170; J2704; J3010; J3475; J3490; J7030; J7040; J7070; Z7610

== ENCOUNTER 2017-09-07 12:03 | Outpatient (CLI) | payer MEDICARE ==
[~2017-09-07 12:03] MED LIST changes: +LISI10TA5 PO; -RIVA10TA PO; +TAMS-12 PO
[2017-09-07 12:27] VITALS: BP 102/63
== END 2017-09-07 23:59 | disposition home or self-care (01) ==
LOC: MSC 12:03
PROVIDERS: ATTEND Internal Medicine
DX: K92.1 Melena (principal); I48.91 Unspecified atrial fibrillation; Z79.01 Long term (current) use of anticoagulants; N40.0 Benign prostatic hyperplasia without lower urinary tract symptoms; Z88.8 Allergy status to other drugs, medicaments and biological substances; Z91.013 Allergy to seafood

== ENCOUNTER 2017-09-07 12:55 | Emergency (ER) | payer MEDICARE ==
[~2017-09-07] VITALS: Ht 170.2 cm; Wt 64.9 kg
--- NOTE | 2017-09-07 13:10 | NUR ---
AAOX3, CAME FROM THE CLINIC SENT BY POLLO FOR POSSIBLE ANEMIA, POST HEMORRHOIDECTOMY. PATIENT STATES THE HE HAD A RED PASTE LIKE BLOOD X 5 DAYS. RR IS EVEN AND UNLABORED WITH NAD NOTED. SKIN IS WARM AND DRY. PLACED ON THE MONITOR. WILL CONTINUOUSLY MONITOR THE PATIENT. AWAITING MD FOR EVAL.
[2017-09-07 13:36] LABS: BASOPHILS % (AUTO) 0.4 % (0.0-2.0); EOSINOPHILS % (AUTO) 0.2 % (0.0-6.0); HEMATOCRIT 27 % (39-51); HEMOGLOBIN 9.1 g/dL (13.5-17.5); LYMPHOCYTES # (AUTO) 0.5 /CMM (0.8-4.8); MEAN CORPUSCULAR HGB CONC 34 g/dl (31.0-36.0); MEAN CORPUSCULAR VOLUME 87 fL (80-96); MONOCYTES # (AUTO) 0.9 /CMM (0.1-1.30); MONOCYTES % (AUTO) 14.8 % (2.0-12.0); NEUTROPHILS # (AUTO) 4.4 /CMM (1.8-8.9); NEUTROPHILS % (AUTO) 75.6 % (43.0-81.0); PLATELET COUNT (AUTO) 185 /CMM (150-450); RDW COEFFICIENT OF VARIATION 13.1 (11.5-15.0); WHITE BLOOD COUNT (AUTO) 5.8 K/uL (4.3-11.0)
[2017-09-07 13:54] LABS: INR 0.95 (0.85-1.15)
[2017-09-07 13:58] LABS: CALCIUM, SERUM 8.9 mg/dL (8.5-10.1); CARBON DIOXIDE 23 mmol/L (21-32); CHLORIDE 101 mmol/L (98-107); CREATININE 1.6 mg/dL (0.6-1.3); GLUCOSE 112 mg/dL (74-106); POTASSIUM 4.3 mmol/L (3.5-5.1); SODIUM SERUM 134 mmol/L (136-145); UREA NITROGEN, BLOOD 26 mg/dL (7-18)
--- NOTE | 2017-09-07 14:04 | NUR ---
PT. VERBALIZED UNDERSTANDING OF AFTERCARE INSTRUCTIONS.Patient discharged to home in stable condition. Written and verbal after care instructions given. Patient verbalizes understanding of instruction.
[2017-09-07 14:10] LABS: ALANINE AMINOTRANSFERASE 58 U/L (12-78); ALBUMIN 3.1 g/dL (3.4-5.0); ALKALINE PHOSPHATASE 59 U/L (46-116); ASPARTATE AMINOTRANSFERASE 60 U/L (15-37); BILIRUBIN,DIRECT 0.1 mg/dL (0.0-0.2); BILIRUBIN,TOTAL 0.4 mg/dL (0.2-1.0); TOTAL PROTEIN, SERUM 6.8 g/dL (6.4-8.2)
[2017-09-07 14:11] VITALS: BP 134/72
== END 2017-09-07 14:12 | disposition home or self-care (01) ==
LOC: ER 12:57
DX: K92.2 Gastrointestinal hemorrhage, unspecified (principal); I48.91 Unspecified atrial fibrillation; Z88.8 Allergy status to other drugs, medicaments and biological substances; Z91.013 Allergy to seafood
CPT/HCPCS: 36415; 80048-TC; 80076-TC; 85025-TC; 85730-TC; 86850-TC; A4606; Z7610

== ENCOUNTER 2017-09-15 14:06 | Outpatient (CLI) | payer MEDICARE ==
[2017-09-15 14:28] LABS: BASOPHILS % (AUTO) 0.2 % (0.0-2.0); EOSINOPHILS % (AUTO) 1.6 % (0.0-6.0); HEMATOCRIT 29 % (39-51); HEMOGLOBIN 9.4 g/dL (13.5-17.5); LYMPHOCYTES % (AUTO) 14.1 % (20.0-44.0); MEAN CORPUSCULAR HGB CONC 33 g/dl (31.0-36.0); MEAN CORPUSCULAR VOLUME 85 fL (80-96); MONOCYTES # (AUTO) 0.9 /CMM (0.1-1.30); MONOCYTES % (AUTO) 11.7 % (2.0-12.0); NEUTROPHILS # (AUTO) 5.3 /CMM (1.8-8.9); NEUTROPHILS % (AUTO) 72.4 % (43.0-81.0); PLATELET COUNT (AUTO) 367 /CMM (150-450); RDW COEFFICIENT OF VARIATION 14.3 (11.5-15.0); RED BLOOD CELL COUNT(AUTO) 3.38 MIL/uL (4.5-6.0); WHITE BLOOD COUNT (AUTO) 7.3 K/uL (4.3-11.0)
[2017-09-15 14:59] LABS: ALANINE AMINOTRANSFERASE 41 U/L (12-78); ALBUMIN 3.1 g/dL (3.4-5.0); ALKALINE PHOSPHATASE 59 U/L (46-116); ASPARTATE AMINOTRANSFERASE 24 U/L (15-37); BILIRUBIN,TOTAL 0.3 mg/dL (0.2-1.0); CALCIUM, SERUM 8.9 mg/dL (8.5-10.1); CARBON DIOXIDE 26 mmol/L (21-32); CHLORIDE 100 mmol/L (98-107); CREATININE 1.7 mg/dL (0.6-1.3); GLUCOSE 101 mg/dL (74-106); POTASSIUM 4.7 mmol/L (3.5-5.1); SODIUM SERUM 134 mmol/L (136-145); TOTAL PROTEIN, SERUM 7.2 g/dL (6.4-8.2); UREA NITROGEN, BLOOD 24 mg/dL (7-18)
== END 2017-09-15 23:59 | disposition home or self-care (01) ==
LOC: LAB 14:06
PROVIDERS: ATTEND Internal Medicine Interventional Cardiology
DX: I10 Essential (primary) hypertension (principal); K92.2 Gastrointestinal hemorrhage, unspecified
CPT/HCPCS: 36415; 80053-TC; 85025-TC

== ENCOUNTER 2021-10-07 16:30 | Emergency (ER) | payer MEDICARE ==
[~2021-10-07] VITALS: Ht 167.6 cm; Wt 61.2 kg
[~2021-10-07 16:30] MED LIST changes: -DRON400T2 PO; +DRON400T6 PO; +LISI10TA29 PO; -LISI10TA5 PO
--- NOTE | 2021-10-07 16:38 | NUR ---
SUDDEN ONSET OF PAIN, LEFT LOWER QUADRANT PAIN X 2 HRS, DENIES NAUSE/VOMITING/DIARRHEA. PT STATED PAIN IS 9/10 ON PS. ATTCHED TO MONITOR, VITALS ARE WITHIN NORMAL LIMITS. BREATHING IS EVEN AND UNLABORED, NO RESPIRATORY DISTRESS NOTED. WARM BLNAKET PROVIDED FOR COMFORT. AWAITING MD MALONEY.
--- NOTE | 2021-10-07 16:40 | NUR ---
PT STATED THAT HE USED THE RESTROOM PRIOR TO ARRIVAL, URINAL PRPVIDED AT BEDSIDE.
--- NOTE | 2021-10-07 16:44 | NUR ---
MARÍA ESTABLISHED R FA 20G.
--- NOTE | 2021-10-07 16:54 | NUR ---
PT TAKEN TO CT VIA [facility]
--- NOTE | 2021-10-07 17:06 | NUR ---
PT RETURNED FROM CT VIA [facility]
[2021-10-07 17:29] LABS: BASOPHILS % (AUTO) 0.3 % (0.0-2.0); EOSINOPHILS % (AUTO) 0.2 % (0.0-6.0); HEMATOCRIT 40 % (39-51); LYMPHOCYTES # (AUTO) 0.3 K/uL (0.8-4.8); LYMPHOCYTES % (AUTO) 3.8 % (20.0-44.0); MEAN CORPUSCULAR HGB CONC 33 g/dl (31.0-36.0); MEAN CORPUSCULAR VOLUME 89 fL (80-96); MONOCYTES # (AUTO) 0.1 K/uL (0.1-1.30); MONOCYTES % (AUTO) 0.8 % (2.0-12.0); NEUTROPHILS # (AUTO) 8.5 K/uL (1.8-8.9); NEUTROPHILS % (AUTO) 94.9 % (43.0-81.0); PLATELET COUNT (AUTO) 180 K/uL (150-450); RED BLOOD CELL COUNT(AUTO) 4.46 MIL/uL (4.5-6.0)
[2021-10-07 17:42] LABS: CALCIUM, SERUM 9.2 mg/dL (8.5-10.1); CARBON DIOXIDE 23 mmol/L (21-32); CHLORIDE 101 mmol/L (98-107); CREATININE 2.1 mg/dL (0.6-1.3); GLUCOSE 153 mg/dL (74-106); POTASSIUM 4.6 mmol/L (3.5-5.1); SODIUM SERUM 134 mmol/L (136-145); UREA NITROGEN, BLOOD 38 mg/dL (7-18)
[2021-10-07 17:46] LABS: ALANINE AMINOTRANSFERASE 27 U/L (12-78); ALBUMIN 3.5 g/dL (3.4-5.0); ALKALINE PHOSPHATASE 97 U/L (46-116); ASPARTATE AMINOTRANSFERASE 14 U/L (15-37); BILIRUBIN,DIRECT 0.1 mg/dL (0.0-0.2); BILIRUBIN,TOTAL 0.4 mg/dL (0.2-1.0); LIPASE 177 U/L (73-393); TOTAL PROTEIN, SERUM 7.6 g/dL (6.4-8.2)
[2021-10-07] MEDS ORDERED: TAMSULOSIN 0.4 MG CAP.SR.24H PO ONE (18:00)
[2021-10-07] MEDS ORDERED: ONDANSETRON HCL/PF 4 MG/2 ML VIAL IVP ONE (18:00)
[2021-10-07] MEDS ORDERED: MORPHINE SULFATE INJ 2 MG/ML DISP.SYRIN IV ONE (18:00)
[2021-10-07] MEDS ORDERED: MORPHINE SULFATE INJ 4 MG/ML DISP.SYRIN ONE (18:01)
[2021-10-07] MEDS ORDERED: ONDANSETRON HCL/PF 4 MG/2 ML VIAL ONE (18:01)
[2021-10-07] MEDS ORDERED: TAMSULOSIN 0.4 MG CAP.SR.24H ONE (18:01)
[2021-10-07] MEDS ORDERED: IV NS 0.9% 1,000 ML BAG IV ONE ×2 (18:30→20:00)
--- NOTE | 2021-10-07 20:45 | NUR ---
URINE COLLECTED AND SENT TO LAB
[2021-10-07 20:56] LABS: BILIRUBIN,URINE NEGATIVE (NEGATIVE); COLOR,URINE YELLOW (YELLOW); LEUKOCYTE ESTERASE ,URINE NEGATIVE (NEGATIVE); NITRITE, URINE NEGATIVE (NEGATIVE); PH,URINE 5.5 (5.0-8.0); PROTEIN,URINE 30 mg/dl (NEGATIVE); UGLUCOSE NEGATIVE (NEGATIVE); UROBILINOGEN,URINE 0.2 EU/dL (0.2)
[2021-10-07 21:11] LABS: BACTERIA,URINE 3+ /HPF (None Seen); RBC,URINE 51-80 /HPF (0-2); SQUAMOUS EPITHELIAL CELL,UR 0-2 /HPF (None Seen)
[2021-10-07] MEDS ORDERED: TAMS-12 PO ×2 (21:23→21:34)
[2021-10-07] MEDS ORDERED: CIPR-262 PO ×2 (21:23→21:34)
[2021-10-07] MEDS ORDERED: IBUP-1957 PO ×2 (21:23→21:34)
[2021-10-07] MEDS ORDERED: HYDR-3972 PO ×2 (21:23→21:34)
--- NOTE | 2021-10-07 21:51 | NUR ---
Patient discharged to home in stable condition. Written and verbal after care instructions given. Patient verbalizes understanding of instruction.
[2021-10-07 21:52] VITALS: BP 126/70
--- NOTE | 2021-10-14 10:42 | NUR ---
ADDENDUM NORMAL SALINE STARTED AT 182 END TIME 1921.
== END 2021-10-07 21:52 | disposition home or self-care (01) ==
LOC: ER 16:32
DX: N20.1 Calculus of ureter (principal); N23 Unspecified renal colic; E86.0 Dehydration; I48.91 Unspecified atrial fibrillation; Z88.8 Allergy status to other drugs, medicaments and biological substances; Z91.013 Allergy to seafood; Z60.2 Problems related to living alone; Z79.899 Other long term (current) drug therapy
CPT/HCPCS: 36415; 71045; 74176; 80048; 80076; 81001; 83690; 85025; 85730; 87086; 87186; 93005; 96361; 96374; 96375; 99285; J2270; J2405; J7030 ×2

== ENCOUNTER 2024-07-12 16:20 | Emergency (ER) | payer MEDICARE ==
[~2024-07-12] VITALS: Ht 167.6 cm; Wt 61.7 kg
[~2024-07-12 16:20] MED LIST changes: +CIPR-262 PO; +HYDR-3972 PO; +IBUP-1957 PO
[2024-07-12] MEDS ORDERED: CEPH500T PO (16:51)
[2024-07-12 17:22] LABS: BASOPHILS % (AUTO) 0.4 % (0.0-2.0); EOSINOPHILS # (AUTO) 0.1 K/uL (0.0-0.7); EOSINOPHILS % (AUTO) 1.1 % (0.0-6.0); HEMATOCRIT 36 % (39-51); HEMOGLOBIN 12.3 g/dL (13.5-17.5); LYMPHOCYTES # (AUTO) 0.9 K/uL (0.8-4.8); LYMPHOCYTES % (AUTO) 16.9 % (20.0-44.0); MEAN CORPUSCULAR HEMOGLOBIN 31 PG (26.0-33.0); MEAN CORPUSCULAR HGB CONC 34 g/dl (31.0-36.0); MEAN CORPUSCULAR VOLUME 89 fL (80-96); MONOCYTES # (AUTO) 0.6 K/uL (0.1-1.30); MONOCYTES % (AUTO) 10.9 % (2.0-12.0); NEUTROPHILS # (AUTO) 3.7 K/uL (1.8-8.9); NEUTROPHILS % (AUTO) 70.7 % (43.0-81.0); PLATELET COUNT (AUTO) 175 K/uL (150-450); RED BLOOD CELL COUNT(AUTO) 4.01 MIL/uL (4.5-6.0); RED CELL DISTRIBUTION WIDTH 13.5 % (11.5-15.0); WHITE BLOOD COUNT (AUTO) 5.2 K/uL (4.3-11.0)
[2024-07-12 17:36] LABS: INR 1.4 (0.91-1.10); PARTIAL THROMBOPLASTIN TIME 33.3 SEC (24.3-34.3); PROTHROMBIN TIME 14.5 SECS (9.2-11.1)
[2024-07-12 17:42] LABS: CALCIUM, SERUM 8.7 mg/dL (8.5-10.1); CREATININE 2.4 mg/dL (0.6-1.3); POTASSIUM 4.6 mmol/L (3.5-5.1)
[2024-07-12 18:07] VITALS: BP 135/81; TEMP 97.9; O2SAT 100
== END 2024-07-12 18:08 | disposition home or self-care (01) ==
LOC: ER 16:21
DX: R04.0 Epistaxis (principal); I48.91 Unspecified atrial fibrillation; Z79.01 Long term (current) use of anticoagulants; Z79.1 Long term (current) use of non-steroidal anti-inflammatories (NSAID); Z79.899 Other long term (current) drug therapy; Z87.19 Personal history of other diseases of the digestive system; Z88.8 Allergy status to other drugs, medicaments and biological substances; Z91.041 Radiographic dye allergy status
CPT/HCPCS: 36415; 80048-TC; 85025-TC; 85730-TC